=== PATIENT | female | born 1970 | race Caucasian/White ===

== ENCOUNTER → 2016-11-28 | Outpatient (CLI) | payer OTHER ==
--- NOTE | 2016-11-29 19:32 | Diagnostic Imaging Report ---
EXAMINATION: Left digital diagnostic mammogram. INDICATION: Followup study. The current study was also evaluated with a Computer Aided Detection (CAD) system. FINDINGS: The baseline mammogram performed on 04/29/2016 raised the question of architectural distortion involving the lateral aspect of the left breast. The subsequent diagnostic mammogram and ultrasound exam of 05/18/2016 failed to show any sign of malignancy. The area of architectural distortion was felt to be secondary to superimposition of the dense fibroglandular tissue. On this exam, there is still no evidence for malignancy. The fibroglandular tissue in the left breast is quite dense, and this does limit the sensitivity of this exam. Ultrasound is pending for further study. IMPRESSION: There is no evidence of malignancy. Ultrasound is pending for further evaluation. ACR BI-RADS Category 0: Incomplete. (Needs additional imaging evaluation). Result letter will be mailed to the patient. Note: At least 10% of breast cancer is not imaged by mammography. Dictated by: Dictated on workstation # [id number]
--- NOTE | 2016-11-29 20:02 | Diagnostic Imaging Report ---
EXAMINATION: Ultrasound of the left breast limited. INDICATION: Abnormal mammogram. FINDINGS: The diagnostic mammogram performed earlier today failed to show any sign of malignancy. The previous left breast ultrasound exam of 05/18/2016 noted a hypoechoic area in the lateral aspect of the left breast. That finding was felt to be more likely due to fibroglandular tissue than to a discrete abnormality. On this exam that finding is again evident and essentially no different. There is still no internal vascularity associated with this finding and most likely this is related to fibroglandular tissue alone or to a benign process. I would recommend that a short-term (6-month) follow-up ultrasound exam of the left breast be performed for continued evaluation. There is no sign of a solid mass to suggest malignancy. IMPRESSION: The hypoechoic area in the lateral aspect of the left breast seen previously appears stable. Most likely this is either a benign process or secondary to fibroglandular tissue. Recommendations as above. ACR BI-RADS Category 3: Probably benign findings. Dictated by: Dictated on workstation # [id number]
== END ==
LOC: RAD 14:05
PROVIDERS: ATTEND Nurse Practitioner Family
DX: R92.8 Other abnormal and inconclusive findings on diagnostic imaging of breast (principal); N60.12 Diffuse cystic mastopathy of left breast
CPT/HCPCS: 76642

== ENCOUNTER → 2018-03-26 | Outpatient (CLI) | payer OTHER ==
--- NOTE | 2018-03-26 14:23 | Diagnostic Imaging Report ---
INDICATION: Palpable lump in the right breast and six-month followup of the left breast. COMPARISON: Correlation is made with the prior mammograms from 04/29/2016 and on the left of 11/28/2016. TECHNIQUE: 2D and 3D bilateral diagnostic mammography was performed with CAD. FINDINGS: Both breasts are heterogeneously dense limiting the sensitivity of mammography. The overall parenchymal pattern is stable. The area of density in the lateral left breast on the CC view is less prominent on today's study. There is no mass or malignant appearing microcalcifications. There are benign calcifications bilaterally. The axillae are unremarkable. IMPRESSION: No mammographic features suspicious for malignancy are identified. Even so, a followup left breast ultrasound to evaluate the previously noted area of hypoechogenicity is recommended. In addition, sonographic interrogation of the right breast at the 10 o'clock location is recommended at the site of the clinical palpable abnormality. The patient denies having a palpable abnormality at this location. ACR BI-RADS Category 0: Incomplete. (Needs additional imaging evaluation). Result letter will be mailed to the patient. Note: At least 10% of breast cancer is not imaged by mammography. Dictated by: Dictated on workstation # [id number]
--- NOTE | 2018-03-26 14:52 | Diagnostic Imaging Report ---
INDICATION: Palpable lump in the right breast and followup of left breast nodule. COMPARISON: Correlation is made with the prior left breast ultrasound from 11/28/2016. FINDINGS: RIGHT BREAST: Sonographic interrogation of the upper outer right breast was performed at the area of clinically palpable abnormality. No solid or cystic mass is seen. No sonographic abnormality is detected. LEFT BREAST: No abnormality at this area is identified on today's study; however, there is a somewhat elongated, circumscribed hypoechoic region at the 1:30 location 8 cm from the nipple. No internal vascularity is seen. This appears to be somewhat macrolobulated. It is uncertain if this represents fibroglandular tissue versus a true nodule, such as a fibroadenoma. No other abnormalities are seen. IMPRESSION: 1. No sonographic abnormality in the right breast is identified. Continued close clinical followup is recommended to confirm stability. 2. The previously noted abnormality at the 2:30 location of the left breast is no longer visualized. There is an area of circumscribed elongated hypoechogenicity at the 1:30 location of the left breast, indeterminate between fibroglandular tissue versus a true nodule such as fibroadenoma. This does have benign features and a followup left breast ultrasound in 6 months is recommended to confirm stability. ACR BI-RADS Category 3: Probably benign findings. Dictated by: Dictated on workstation # [id number]
== END ==
LOC: RAD 13:57
PROVIDERS: ATTEND Nurse Practitioner Family
DX: N63.11 Unspecified lump in the right breast, upper outer quadrant (principal); N63.12 Unspecified lump in the right breast, upper inner quadrant; N63.21 Unspecified lump in the left breast, upper outer quadrant
CPT/HCPCS: 76642; 77066